=== PATIENT | male | born 2005 | race Hispanic/Latino ===

== ENCOUNTER 2024-10-24 20:23 | Emergency (ER) | payer SELFPAY ==
[~2024-10-24] VITALS: Ht 167.6 cm; Wt 86.2 kg
[2024-10-24 21:00] VITALS: TEMP 98
[2024-10-25] VITALS: PULSE 71; RESP 18
[2024-10-25] MEDS: ONDANSETRON HCL 4 MG ORAL DISINTEGRATING TAB PO ONE (00:05)
[2024-10-25] MEDS: ACETAMIN/BUTALBITAL/CAFFEINE TAB PO ONE (00:05)
[2024-10-25 02:42] VITALS: BP 129/84; PULSE 65; RESP 18; TEMP 98.6; O2SAT 98
== END 2024-10-25 01:45 | disposition home or self-care (01) ==
LOC: ER 23:34
DX: R51.9 Headache, unspecified (principal)
CPT/HCPCS: 70450; 99284; Q0162